=== PATIENT | female | born 1940 | race Caucasian/White ===

== ENCOUNTER 2018-07-09 21:32 | Emergency (ER) | payer MEDICARE ==
[~2018-07-09] VITALS: Ht 152.4 cm; Wt 47.6 kg
[2018-07-09] MEDS ORDERED: HYDROCHLOROTHIAZIDE (21:57)
[2018-07-09] MEDS ORDERED: [UNRECOGNIZED DRUG - OTHER] (21:57)
[2018-07-09] MEDS ORDERED: ONDANSETRON 4 MG/2 ML VIAL IM ONE (22:00)
[2018-07-09] MEDS ORDERED: MORPHINE SULFATE 4 MG/1 ML DISP.SYRIN IM ONE (22:00)
[2018-07-09] MEDS ORDERED: ONDANSETRON 4 MG/2 ML VIAL ONE (22:04)
[2018-07-09] MEDS ORDERED: MORPHINE SULFATE 4 MG/1 ML DISP.SYRIN ONE (22:04)
--- NOTE | 2018-07-10 00:33 | NUR ---
Patient discharged to home in stable conditon. Written and verbal after care instructions given. Patient verbalizes understanding of instructions. Pt ambulated out of ER in steady gait accompanied by son who will drive home. All belongings with pt. VSS. NAD noted.
[2018-07-10 00:35] VITALS: BP 139/81
== END 2018-07-10 00:35 | disposition home or self-care (01) ==
LOC: ER 21:33
DX: S20.212A Contusion of left front wall of thorax, initial encounter (principal); S00.83XA Contusion of other part of head, initial encounter; S00.81XA Abrasion of other part of head, initial encounter; I10 Essential (primary) hypertension; Z88.0 Allergy status to penicillin; Z88.1 Allergy status to other antibiotic agents; W10.9XXA Fall (on) (from) unspecified stairs and steps, initial encounter; Y93.89 Activity, other specified; Y92.89 Other specified places as the place of occurrence of the external cause; Y99.8 Other external cause status
CPT/HCPCS: 70450; 71101; 72125; A4663; J2270; J2405